=== PATIENT | male | born 1945 | race Caucasian/White ===

== ENCOUNTER 2017-01-06 17:45 | Inpatient (IN) | payer MEDICARE ==
[~2017-01-06] VITALS: Ht 170.2 cm; Wt 80.0 kg
[~2017-01-06 17:45] MED LIST: BUPR300T PO; CLON1TAB PO; ENAL20TA PO
[2017-01-06 17:55] VITALS: BP 146/74; PULSE 91; RESP 26; TEMP 97.9; O2SAT 96
[2017-01-06] MEDS ORDERED: LORazepam 2 MG/ML VIAL IV PUSH ONE ×2 (18:00→20:00)
[2017-01-06] MEDS ORDERED: MULTIVITAMIN TAB PO ONE (18:00)
[2017-01-06] MEDS ORDERED: THIAMINE HCL 100 MG TAB PO ONE (18:00)
[2017-01-06 18:08] VITALS: RESP 19
--- NOTE | 2017-01-06 18:26 | PD ---
HPI Chief Complaint: General Weakness Time Seen by Provider: 17:59 Travel History International Travel<30 days: No Contact w/Intl Traveler<30days: No Traveled to known affect area: No History of Present Illness HPI This is a 71 year-old gentleman with history of hypertension, hyperlipidemia, who presents here via EMS with what appears to be alcohol withdrawal. The patient admits that he is an alcoholic. He is unsure when his last drink was. The patient has severe tremors. He denies any history of true DTs. He does report he has had the shakes before. He states that he was in a relationship with him was going to be however that is subsequently resolved. He is very emotional. PFSH Past Medical History Hx Anticoagulant Therapy: Yes (aspirin) Bipolar Disorder: Yes Cardiovascular Problems: Yes High Cholesterol: Yes Diminished Hearing: No Genitourinary: No Hypertension: Yes Musculoskeletal: No Neurologic: Yes Respiratory: No PNEUMOCCOCAL Vaccine (Year): 2 Past Surgical History Abdominal Surgery: No Cardiac Surgery: No Ear Surgery: No Endocrine Surgery: No Eye Surgery: No Genitourinary Surgery: No Oral Surgery: No Thoracic Surgery: No Tonsillectomy: Yes Other Surgery: Yes Social History Alcohol Use: Yes (WINE/VODKA 2-4 times a week) Tobacco Use: No Substance Use: Yes Allergies-Medications (Allergen,Severity, Reaction): Coded Allergies: No Known Allergies (Verified , 12/24/15) Reported Meds & Prescriptions Reported Meds & Active Scripts Active Enalapril Maleate 20 Mg Tab 20 Mg PO DAILY 30 Days Reported Clonazepam 1 Mg Tab 1 Mg PO Q12 Bupropion Hcl Xl (Bupropion HCl) 300 Mg Tab 100 Mg PO BID Enalapril Maleate 20 Mg Tab 20 Mg PO Review of Systems Eyes: No: Blurred Vision, Photophobia HENT: No: Headaches, Neck Pain Cardiovascular: No: Chest Pain or Discomfort, Palpitations Respiratory: No: Cough, Shortness of Breath Gastrointestinal: No: Nausea, Vomiting, Abdominal Pain Genitourinary: No: Dysuria, Incontinence Musculoskeletal: Positive: Weakness (generalized), No: Pain Neurologic: Positive: Weakness (generalized), Other (tremulousness), No: Dizziness, Headache, Seizures, Sensory Disturbance Physical Exam Narrative GENERAL: Well-developed well-nourished male who appears very tremulous. SKIN: Focused skin assessment warm/dry. HEAD: Atraumatic. Normocephalic. EYES: No scleral icterus. No injection or drainage. ENT: No nasal bleeding or discharge. Mucous membranes pink and moist. NECK: Trachea midline. No JVD. Supple. CARDIOVASCULAR: Regular rate and rhythm. No murmur appreciated. There is a hematoma to his right upper chest. The patient states he bumps into things. RESPIRATORY: No accessory muscle use. Clear to auscultation. Breath sounds equal bilaterally. GASTROINTESTINAL: Abdomen soft, non-tender, nondistended. MUSCULOSKELETAL: No obvious deformities. No clubbing. No cyanosis. No edema. NEUROLOGICAL: Awake and alert. No obvious cranial nerve deficits. Motor grossly within normal limits. Normal speech. Patient is very shaky. Data Data Last Documented VS Vital Signs Date Time Temp Pulse Resp B/P Pulse Ox O2 Delivery O2 Flow Rate FiO2 01/06/17 18:08 19 Room Air 95 01/06/17 18:05 91 96 01/06/17 17:55 97.9 146/74 Orders Complete Blood Count With Diff (01/06/17 17:59) Comprehensive Metabolic Panel (01/06/17 17:59) Ckmb (Isoenzyme) Profile (01/06/17 17:59) Troponin I (01/06/17 17:59) Lipase (01/06/17 17:59) Chest, Single Ap (01/06/17 17:59) Iv Access Insert/Monitor (01/06/17 17:59) Ecg Monitoring (01/06/17 17:59) Oximetry (01/06/17 17:59) Drug Screen, Random Urine (01/06/17 17:59) Alcohol (Ethanol) (01/06/17 17:59) Lorazepam Inj (Ativan Inj) (01/06/17 18:00) Thiamine (Vit B1) (Vitamin B1) (01/06/17 18:00) Multivitamin (Theragran) (01/06/17 18:00) MDM Medical Decision Making Medical Screen Exam Complete: Yes Emergency Medical Condition: Yes Differential Diagnosis Acute alcohol withdrawal versus metabolic derangement versus acute life stressors. Narrative Course 71-year-old male presents with complaints of weakness. The patient admits that he has an alcohol abuse problem. The patient appears to be going through withdrawals. Laboratory tests are pending at this time. He will be signed out to Dr. Alexis Ramon, physician replacing me at change of shift. Disposition and further workup/evaluation will be per Dr. Ramon. Diagnosis Primary Impression: Weakness Additional Impression: acute alcohol withdrawal Faisal Thakkar MD Jan 06, 2017 18:26
--- NOTE | 2017-01-06 18:46 | RADRPT ---
EXAM DATE/TIME: 01/06/2017 18:08 [facility] COMPARISON: No previous studies available for comparison. INDICATIONS : Rib pain. History of fall. MEDICAL HISTORY : None. SURGICAL HISTORY : None. ENCOUNTER: Initial ACUITY: 1 day PAIN SCORE: 0/10 LOCATION: Right upper chest bruising FINDINGS: Single AP view of the chest. The lungs are clear. Cardiomediastinal silhouette within normal limits. No evidence of pleural effusion or pneumothorax. Old lateral ninth rib fracture on the right. CONCLUSION: Old right lateral ninth rib fracture deformity. No acute cardiopulmonary disease identified. Jeff Caro MD on January 06, 2017 at 18:43 Board Certified Radiologist. This report was verified electronically.
[2017-01-06 18:50] LABS: AUTOMATED NEUTROPHIL # 7.2 TH/MM3 (1.8-7.7); BASOPHIL % 0.3 % (0.0-2.0); EOSINOPHIL % 0.1 % (0.0-4.0); HEMATOCRIT 44.4 % (39.0-51.0); HEMO FLAGS DIFF FINAL; LYMPH % 9.5 % (9.0-44.0); LYMPHOCYTE # 0.8 TH/MM3 (1.0-4.8); MEAN CELL VOLUME 94.2 FL (80.0-100.0); MEAN CORPUSCULAR HEMOGLOBIN 32.9 PG (27.0-34.0); MEAN CORPUSCULAR HGB CONC 34.9 % (32.0-36.0); MONO % 6.1 % (0.0-8.0); PLATELET COUNT 114 TH/MM3 (150-450); RED BLOOD COUNT 4.71 MIL/MM3 (4.50-5.90); RED CELL DISTRIBUTION WIDTH 13.1 % (11.6-17.2); WHITE BLOOD COUNT 8.6 TH/MM3 (4.0-11.0)
[2017-01-06] MEDS ORDERED: BUPR75TA PO (19:00)
[2017-01-06] MEDS ORDERED: ENAL5TAB PO (19:00)
[2017-01-06] MEDS ORDERED: SIMV5TAB3 PO (19:00)
[2017-01-06] MEDS ORDERED: CLON1 PO (19:00)
--- NOTE | 2017-01-06 19:07 | PD ---
Data Data Last Documented VS Vital Signs Date Time Temp Pulse Resp B/P Pulse Ox O2 Delivery O2 Flow Rate FiO2 01/06/17 21:15 91 16 163/92 97 Room Air 01/06/17 18:08 95 01/06/17 17:55 97.9 Orders Complete Blood Count With Diff (01/06/17 17:59) Comprehensive Metabolic Panel (01/06/17 17:59) Ckmb (Isoenzyme) Profile (01/06/17 17:59) Troponin I (01/06/17 17:59) Lipase (01/06/17 17:59) Chest, Single Ap (01/06/17 17:59) Iv Access Insert/Monitor (01/06/17 17:59) Ecg Monitoring (01/06/17 17:59) Oximetry (01/06/17 17:59) Drug Screen, Random Urine (01/06/17 17:59) Alcohol (Ethanol) (01/06/17 17:59) Lorazepam Inj (Ativan Inj) (01/06/17 18:00) Thiamine (Vit B1) (Vitamin B1) (01/06/17 18:00) Multivitamin (Theragran) (01/06/17 18:00) CKMB (01/06/17 18:10) CKMB% (01/06/17 18:10) Sodium Chlor 0.9% 1000 Ml Inj (Ns 1000 M (01/06/17 20:00) Lorazepam Inj (Ativan Inj) (01/06/17 20:00) Resp Blood Gas Venous (01/06/17 ) Blood Gas Venous (Vbg) (01/06/17 20:23) Admit To Inpatient (01/06/17 ) Vital Signs (Adult) Q4H (01/06/17 20:51) Bedside Glucose STEVE.AC&HS (01/06/17 20:51) Intake + Output STEVE.QSHIFT (01/06/17 20:51) Alcohol Withdrawal Asmt-Ciwa Q4HX18 (01/06/17 20:51) ^ Seizure Precautions (01/06/17 20:51) Diet Regular Basic (01/07/17 Breakfast) Folic Acid (Folate) (01/07/17 09:00) Thiamine (Vit B1) (Vitamin B1) (01/07/17 09:00) Multivitamins-Minerals Therap (Theragran (01/07/17 09:00) Consult Cm-Etoh Abuse Dc Plan (01/06/17 ) Flumazenil Inj (Romazicon Inj) (01/06/17 21:00) Lorazepam (Ativan) (01/06/17 21:00) Lorazepam Inj (Ativan Inj) (01/06/17 21:00) Lorazepam (Ativan) (01/06/17 21:00) Lorazepam Inj (Ativan Inj) (01/06/17 21:00) Lorazepam Inj (Ativan Inj) (01/06/17 21:00) Lorazepam Inj (Ativan Inj) (01/06/17 21:00) Haloperidol Inj (Haldol Inj) (01/06/17 21:00) Inpatient Certification (01/06/17 ) Vital Signs (Adult) Q4H (01/06/17 20:51) Kiln Cleaner / Telemetry .CONTINUOUS (01/06/17 20:51) Intake + Output STEVE.QSHIFT (01/06/17 20:51) Sodium Chlor 0.9% 1000 Ml Inj (Ns 1000 M (01/06/17 21:00) Sodium Chloride 0.9% Flush (Ns Flush) (01/06/17 21:00) Sodium Chloride 0.9% Flush (Ns Flush) (01/06/17 21:00) Ondansetron Inj (Zofran Inj) (01/06/17 21:00) Comprehensive Metabolic Panel (01/07/17 06:00) Complete Blood Count With Diff (01/07/17 06:00) Scd Bilateral/Knee High STEVE.BID (01/06/17 20:51) Myke Bilateral/Knee High STEVE.QSHIFT (01/06/17 20:51) Acetaminophen (Tylenol) (01/06/17 21:00) Docusate Sodium-Senna (Altagracia-Colace) (01/06/17 21:00) Magnesium Hydroxide Liq (Milk Of Magnesi (01/06/17 21:00) Sennosides (Senokot) (01/06/17 21:00) Bisacodyl Supp (Dulcolax Supp) (01/06/17 21:00) Lactulose Liq (Lactulose Liq) (01/06/17 21:00) Electrocardiogram (01/06/17 18:02) Admit Order (Ed Use Only) (01/06/17 ) Labs Laboratory Tests Test 01/06/17 01/06/17 18:10 20:23 White Blood Count 8.6 TH/MM3 Red Blood Count 4.71 MIL/MM3 Hemoglobin 15.5 GM/DL Hematocrit 44.4 % Mean Corpuscular Volume 94.2 FL Mean Corpuscular Hemoglobin 32.9 PG Mean Corpuscular Hemoglobin 34.9 % Concent Red Cell Distribution Width 13.1 % Platelet Count 114 TH/MM3 Mean Platelet Volume 8.0 FL Neutrophils (%) (Auto) 84.0 % Lymphocytes (%) (Auto) 9.5 % Monocytes (%) (Auto) 6.1 % Eosinophils (%) (Auto) 0.1 % Basophils (%) (Auto) 0.3 % Neutrophils # (Auto) 7.2 TH/MM3 Lymphocytes # (Auto) 0.8 TH/MM3 Monocytes # (Auto) 0.5 TH/MM3 Eosinophils # (Auto) 0.0 TH/MM3 Basophils # (Auto) 0.0 TH/MM3 CBC Comment DIFF FINAL Differential Comment Sodium Level 136 MEQ/L Potassium Level 3.6 MEQ/L Chloride Level 95 MEQ/L Carbon Dioxide Level 26.4 MEQ/L Anion Gap 15 MEQ/L Blood Urea Nitrogen 12 MG/DL Creatinine 1.07 MG/DL Estimat Glomerular Filtration 69 ML/MIN Rate Random Glucose 123 MG/DL Calcium Level 9.7 MG/DL Total Bilirubin 1.5 MG/DL Aspartate Amino Transf 45 U/L (AST/SGOT) Alanine Aminotransferase 59 U/L (ALT/SGPT) Alkaline Phosphatase 75 U/L Total Creatine Kinase 203 U/L Creatine Kinase MB 5.5 NG/ML Troponin I 0.03 NG/ML Total Protein 8.0 GM/DL Albumin 4.2 GM/DL Lipase 80 U/L Ethyl Alcohol Level LESS THAN 3 MG/DL Blood Gas Puncture Site RN BLOOD DRAWER Blood Gas Patient Temperature 98.6 Venous Blood pH 7.50 Venous Blood Partial Pressure 33 mmHg CO2 Venous Blood Partial Pressure 46 mmHg O2 Venous Blood HCO3 25 mmol/L Venous Blood Oxygen Saturation 80 % Venous Blood Oxygen Content 16.5 Vol % Venous Blood Base Excess 2.2 mmol/L Oxygen Delivery Device RA Blood Gas Inspired Oxygen 21 % MDM Supervised Visit with CINTHIA: Yes Narrative Course Patient care assumed from Dr. Faisal Thakkar at 1900. Patient is a 71-year-old male who told me that the bottle pretty hard last week and hasn't had a drink in 3 days. His been tremulous since today. Mild nausea without vomiting. He is bordering confusion and I have to ask him every question twice to get responses out of him. No fever not tachycardic. He was given a liter of normal saline 4 mg of Ativan and is beginning to calm down. Initial laboratory workup is reassuring. Patient was discussed with Dr. Montgomery for admission for alcohol withdrawals and she is agreeable. Diagnosis Primary Impression: Weakness Additional Impression: acute alcohol withdrawal Admitting Information Admitting Physician Requests: Observation Condition: Stable Alexis Ramon MD Jan 06, 2017 19:07
[2017-01-06 19:11] LABS: ALT (GPT) 59 U/L (12-78); ANION GAP 15 MEQ/L (5-15); AST (GOT) 45 U/L (15-37); BICARBONATE 26.4 MEQ/L (21.0-32.0); BLOOD UREA NITROGEN 12 MG/DL (7-18); CHLORIDE 95 MEQ/L (98-107); GLOMERULAR FILTRATION RATE 69 ML/MIN (>89); POTASSIUM 3.6 MEQ/L (3.5-5.1); SODIUM (NA) 136 MEQ/L (136-145)
[2017-01-06 19:14] LABS: ALKALINE PHOSPHATASE 75 U/L (45-117); CREATINE KINASE 203 U/L (39-308); TOTAL BILIRUBIN ADULT 1.5 MG/DL (0.2-1.0)
[2017-01-06 19:27] LABS: CKMB 5.5 NG/ML (0.5-3.6)
[2017-01-06] MEDS ORDERED: SODIUM CHLOR 0.9% 1000 ML INJ 1,000 ML IV ONE (20:00)
[2017-01-06 20:41] LABS: BLOOD GAS VENOUS BASE EXCESS 2.2 mmol/L (-2-2); BLOOD GAS VENOUS HCO3 25 mmol/L (22-26); BLOOD GAS VENOUS O2 CONTENT 16.5 Vol % (9.0-17.0); BLOOD GAS VENOUS O2 HGB SAT 80 % (70-76); BLOOD GAS VENOUS PCO2 33 mmHg (44-48); BLOOD GAS VENOUS PO2 46 mmHg (35-40); TEMP CORR TO 98.6
[2017-01-06 20:43] LABS: CRITICAL VALUE YES; FIO2 21 %; OXYGEN DEVICE RA; STAT YES
--- NOTE | 2017-01-06 20:56 | HHI.HP ---
HPI Service [facility] Primary Care Physician Juanjose Forte Admission Diagnosis Diagnoses: (1) Alcohol abuse Diagnosis: Principal (2) Dehydration Diagnosis: Principal (3) HTN (hypertension) Diagnosis: Principal (4) Thrombocytopenia Diagnosis: Principal Travel History International Travel<30 Days: No Contact w/Intl Traveler <30 Da: No Traveled to Known Affected Are: No History of Present Illness Is a 71-year-old male with a PMH of Bipolar Disorder, HTN, Hyperlipidemia and Alcohol Abuse was brought to the ER by EMS secondary to apparent alcohol withdrawal. Patient states he drinks daily, unable to quantify, however reports he has not had a drink in a "long time". Does admit to previous episodes of alcohol withdrawal. On arrival, BP 146/74, HR 91, O2 sat 96% on RA , Afebrile. CBC unremarkable except for platelets 114, previously 117 on . Chemistry unremarkable except for GFR 69. Alcohol less than 3. CXR with old right lateral ninth rib fracture, no acute findings. S/p multiple doses of Ativan IV in ER for tremulousness. Review of Systems Except as stated in HPI: all other systems reviewed are Neg ROS: 14 point review of systems otherwise negative. Past Family Social History Past Medical History PMH: Bipolar Disorder, HTN, Hyperlipidemia and Alcohol Abuse Past Surgical History PAST SURGICAL HISTORY: Tonsillectomy Allergies: Coded Allergies: No Known Allergies (Verified , 12/24/15) Family History PAST FAMILY HISTORY: Reviewed. No h/o DM or CAD Social History PAST SOCIAL HISTORY: Alcohol abuse, unable to quantify. Negative for tobacco or drugs. Physical Exam Vital Signs Vital Signs Date Time Temp Pulse Resp B/P Pulse Ox O2 Delivery O2 Flow Rate FiO2 01/06/17 18:08 19 Room Air 95 01/06/17 18:05 91 96 Room Air 01/06/17 17:55 97.9 91 26 146/74 96 Physical Exam PE: GENERAL: Middle age male in no acute distress, mildly tremulous. HEENT: PERRLA, EOMI. No scleral icterus or conjunctival pallor. No lid lag or facial droop. CARDIOVASCULAR: Regular rate and rhythm. No obvious murmurs to auscultation. No chest tenderness to palpation. RESPIRATORY: No obvious rhonchi or wheezing. Clear to auscultation. Breath sounds equal bilaterally. GASTROINTESTINAL: Abdomen soft, non-tender, nondistended. BS normal. MUSCULOSKELETAL: Extremities without clubbing, cyanosis, or edema. No obvious deformities. NEUROLOGICAL: Awake, alert and oriented x4. No focal neurologic deficits. Moving both upper and lower extremities spontaneously. Laboratory Laboratory Tests Test 01/06/17 01/06/17 18:10 20:23 White Blood Count 8.6 Red Blood Count 4.71 Hemoglobin 15.5 Hematocrit 44.4 Mean Corpuscular Volume 94.2 Mean Corpuscular Hemoglobin 32.9 Mean Corpuscular Hemoglobin 34.9 Concent Red Cell Distribution Width 13.1 Platelet Count 114 Mean Platelet Volume 8.0 Neutrophils (%) (Auto) 84.0 Lymphocytes (%) (Auto) 9.5 Monocytes (%) (Auto) 6.1 Eosinophils (%) (Auto) 0.1 Basophils (%) (Auto) 0.3 Neutrophils # (Auto) 7.2 Lymphocytes # (Auto) 0.8 Monocytes # (Auto) 0.5 Eosinophils # (Auto) 0.0 Basophils # (Auto) 0.0 CBC Comment DIFF FINAL Differential Comment Sodium Level 136 Potassium Level 3.6 Chloride Level 95 Carbon Dioxide Level 26.4 Anion Gap 15 Blood Urea Nitrogen 12 Creatinine 1.07 Estimat Glomerular Filtration 69 Rate Random Glucose 123 Calcium Level 9.7 Total Bilirubin 1.5 Aspartate Amino Transf 45 (AST/SGOT) Alanine Aminotransferase 59 (ALT/SGPT) Alkaline Phosphatase 75 Total Creatine Kinase 203 Creatine Kinase MB 5.5 Troponin I 0.03 Total Protein 8.0 Albumin 4.2 Lipase 80 Ethyl Alcohol Level LESS THAN 3 Blood Gas Puncture Site RN BLOOD DRAWER Blood Gas Patient Temperature 98.6 Venous Blood pH 7.50 Venous Blood Partial Pressure 33 CO2 Venous Blood Partial Pressure 46 O2 Venous Blood HCO3 25 Venous Blood Oxygen Saturation 80 Venous Blood Oxygen Content 16.5 Venous Blood Base Excess 2.2 Oxygen Delivery Device RA Blood Gas Inspired Oxygen 21 Result Diagram: 01/06/17180901/06/171809 Assessment and Plan Problem List: (1) Alcohol abuse ICD Code: F10.10 Status: Acute (2) Dehydration ICD Code: E86.0 Status: Acute (3) HTN (hypertension) ICD Code: I10 Status: Acute (4) Thrombocytopenia ICD Code: D69.6 Status: Acute Assessment and Plan A/P: 1. Alcohol Abuse: w/ Acute Alcohol Withdrawal, +tremulous, s/p multiple doses of Ativan IV in ER. Start CIWA, Seizure Precautions, MVT/Thiamine/Folate replacement. IVF 2. Dehydration: GFR 69, BUN/Creatinine normal. IVF for hydration, repeat labs in am. 3. HTN: BP 160's. Hold Enalapril in light of dehydration, start Clonidine PO , monitor BP. 4. Thrombocytopenia: Platelets 114, previously 117 on 12/24/15. No signs of bleeding, will monitor, repeat labs in am. 5. DVT Prophylaxis: SCD/teds. 6. Social work for DC planning as needed. 7. Case discussed at length with ER physician. Physician Certification 2 Midnight Certification Type: Admission for Inpatient Services Order for Inpatient Services The services are ordered in accordance with Medicare regulations or non- Medicare payer requirements, as applicable. In the case of services not specified as inpatient-only, they are appropriately provided as inpatient services in accordance with the 2-midnight benchmark. Estimated LOS (days): 2 days is the estimated time the patient will need to remain in the hospital, assuming treatment plan goals are met and no additional complications. Post-Hospital Plan: Not yet determined Debbie Velasquez MD Jan 06, 2017 20:56
[2017-01-06] MEDS ORDERED: FLUMAZENIL 0.5 MG/5 ML VIAL IV PUSH PRN (21:00)
[2017-01-06] MEDS ORDERED: BISACODYL 10 MG SUPP RECTAL PRN (21:00)
[2017-01-06] MEDS: SODIUM CHLORIDE 0.9% FLUSH 10 ML FLUSH IV FLUSH SCH (21:00)
[2017-01-06] MEDS ORDERED: LORazepam 2 MG TAB PO PRN (21:00)
[2017-01-06] MEDS ORDERED: LORazepam 2 MG/ML VIAL IV PUSH PRN ×4 (21:00)
[2017-01-06] MEDS ORDERED: SODIUM CHLORIDE 0.9% FLUSH 10 ML FLUSH IV FLUSH PRN (21:00)
[2017-01-06] MEDS ORDERED: SENNOSIDES 8.6 MG TAB PO PRN (21:00)
[2017-01-06] MEDS: DOCUSATE SODIUM 50 MG/SENNA 8.6 MG TAB PO SCH (21:00)
[2017-01-06] MEDS ORDERED: MAGNESIUM HYDROXIDE SUSP 30 ML CUP PO PRN (21:00)
[2017-01-06] MEDS ORDERED: LORazepam 1 MG TAB PO PRN (21:00)
[2017-01-06] MEDS ORDERED: ONDANSETRON HCL 4 MG/2 ML VIAL IVP PRN (21:00)
[2017-01-06] MEDS ORDERED: ACETAMINOPHEN 325 MG TAB PO PRN (21:00)
[2017-01-06] MEDS ORDERED: HALOPERIDOL LACTATE 5 MG/ML AMP IM PRN (21:00)
[2017-01-06] MEDS ORDERED: LACTULOSE SYRUP 20 GM/30 ML CUP PO PRN (21:00)
[2017-01-06 21:15] VITALS: BP 163/92; PULSE 91; RESP 16; O2SAT 97
[2017-01-06] MEDS: SODIUM CHLOR 0.9% 1000 ML INJ 1,000 ML IV SCH (21:32)
[2017-01-06] MEDS: cloNIDine HCL 0.1 MG TAB PO SCH (22:14)
[2017-01-06 22:48] VITALS: PULSE 82
[2017-01-06 22:50] VITALS: BP 139/64; PULSE 89; RESP 18; TEMP 98.6; O2SAT 97
[2017-01-06 23:27] LABS: AMPHETAMINE, URINE NEG (NEG); BARBITURATES, URINE NEG (NEG); COCAINE, URINE NEG (NEG)
[2017-01-07] VITALS (11 sets, daily range): BP systolic 131–140; BP diastolic 75–83; PULSE 67–83; RESP 16–21; TEMP 98–98.7; O2SAT 96–100
[2017-01-07] MEDS: cloNIDine HCL 0.1 MG TAB PO SCH ×3 (05:44→22:18)
[2017-01-07] MEDS: SODIUM CHLOR 0.9% 1000 ML INJ 1,000 ML IV SCH ×3 (05:45→19:14)
[2017-01-07] MEDS ORDERED: FOLI1TAB6 PO (09:31)
[2017-01-07] MEDS ORDERED: GNP100TA3 PO (09:31)
[2017-01-07] MEDS: FOLIC ACID 1 MG TAB PO SCH (09:37)
[2017-01-07] MEDS: MULTIVITAMINS/MINERALS THERAPEUTIC TAB PO SCH (09:37)
[2017-01-07] MEDS: THIAMINE HCL 100 MG TAB PO SCH (09:37)
--- NOTE | 2017-01-07 09:37 | HHI.PR ---
Subjective Remarks Follow-up for probable alcohol withdrawal. The patient is awake, alert, and oriented 3. He is feeling much better today. He states he called the ambulance yesterday because he was shaking so badly that he could not walk. He states she's been able to ambulate to the restroom multiple times with no assistance overnight. Tremors have improved. He denies any further weakness. Tolerating diet with no nausea or vomiting. No chest pain, shortness of breath. Denies any suicidal ideation, homicidal ideation, hallucinations. When asked about alcohol use, the patient becomes evasive, states "I drink glass of wine every night", but does agree that his symptoms are probably secondary to alcohol use. He states that earlier this week he decided that he was done with alcohol, and his last drink was on . The tremor started on Sunday and got worse Sunday which prompted him to come in. He denies any problems with withdrawals in the past. He does want to abstain from alcohol, would like to go back to AA, interested in information. He was offered Librium , but would rather continue on his current Klonopin. Objective Vitals Vital Signs Date Time Temp Pulse Resp B/P Pulse Ox O2 Delivery O2 Flow Rate FiO2 01/07/17 08:28 98.7 71 18 137/83 96 01/07/17 04:00 98.0 73 18 140/78 96 01/07/17 03:48 68 01/07/17 01:00 72 01/06/17 22:50 98.6 89 18 139/64 97 01/06/17 22:48 82 01/06/17 21:15 91 16 163/92 97 Room Air 01/06/17 18:08 19 Room Air 95 01/06/17 18:05 91 96 Room Air 01/06/17 17:55 97.9 91 26 146/74 96 Result Diagram: 01/06/170 01/06/171809 Imaging Last Impressions Chest X-Ray 01/06/171758 Signed Impressions: Service Date/Time: Friday, January 06, 2017 18:08 - CONCLUSION: Old right lateral ninth rib fracture deformity. No acute cardiopulmonary disease identified. Jeff Caro MD Objective Remarks GENERAL: Well-developed well-nourished. In no acute distress. Oriented 3. SKIN: Warm and dry. No lesions noted. HEENT: Normocephalic. Pupils equal and round. Mucous membranes pink and moist. CARDIOVASCULAR: Regular rate and rhythm. No murmur appreciated. RESPIRATORY: No accessory muscle use. Clear to auscultation. Breath sounds equal bilaterally. GASTROINTESTINAL: Abdomen soft, non-tender, nondistended. Bowel sounds x4. MUSCULOSKELETAL: Chronic right thumb deformity. No clubbing or cyanosis. No edema. NEUROLOGICAL: Awake and alert. No focal neurological deficits. Moves upper and lower extremities spontaneously. Normal speech. No tremors. Strength 5/5. PSYCHIATRIC: Appropriate mood and affect; insight and judgment normal. Denies SI or HI. A/P Problem List: (1) Alcohol abuse ICD Code: F10.10 Status: Acute (2) HTN (hypertension) ICD Code: I10 Status: Chronic (3) Thrombocytopenia ICD Code: D69.6 Status: Chronic Assessment and Plan 71-year-old male with a PMH of Bipolar Disorder, HTN, Hyperlipidemia and Alcohol Abuse was brought to the ER by EMS secondary to apparent alcohol withdrawal tremors Acute alcohol withdrawal: Patient presented with worsening tremors to history days after stopping alcohol. Does admit to daily alcohol use. Blood pressure and heart rate are within normal limits. No hallucinations. Tremors have resolved. CIWA score has been 0 overnight. Patient ambulating without difficulties. Wants to continue cessation, case management to provide outpatient resources for continued alcohol cessation. Patient refuses Librium, wants to continue Klonopin. CIWA, Seizure Precautions, MVT/Thiamine/Folate replacement. IVF. Patient improved faster than expected. Hypertension: Chronic, stable. Resume home enalapril. Thrombocytopenia: Platelets 114, previously 117 on 12/24/15, chronic, stable. No signs of bleeding, will monitor. History of anxiety/depression: Denies SI or HI. Continue bupropion and Klonopin. DVT Prophylaxis: SCD/teds. Discharge Planning The patient was to be discharged home, however began to have recurrent episodes of tremors again and difficulty ambulating. Hold discharge for today. Consult PT. Continue Librium and CIWA. Check head CT. Problem Qualifiers (1) HTN (hypertension): Qualified Code: I10 - Essential hypertension Curtis Medel Jan 07, 2017 09:37 Qualified Code: I10 - Essential hypertension Curtis Medel Jan 07, 2017 09:37
[2017-01-07] MEDS: DOCUSATE SODIUM 50 MG/SENNA 8.6 MG TAB PO SCH ×3 (09:38→22:18)
[2017-01-07] MEDS: SODIUM CHLORIDE 0.9% FLUSH 10 ML FLUSH IV FLUSH SCH ×2 (09:39→22:19)
[2017-01-07 10:49] LABS: ALKALINE PHOSPHATASE 66 U/L (45-117); ALT (GPT) 44 U/L (12-78); ANION GAP 13 MEQ/L (5-15); AST (GOT) 43 U/L (15-37); BICARBONATE 23.5 MEQ/L (21.0-32.0); CHLORIDE 104 MEQ/L (98-107); GLOMERULAR FILTRATION RATE 75 ML/MIN (>89); POTASSIUM 3.7 MEQ/L (3.5-5.1); SODIUM (NA) 140 MEQ/L (136-145); TOTAL BILIRUBIN ADULT 1.2 MG/DL (0.2-1.0)
[2017-01-07 10:50] LABS: BLOOD UREA NITROGEN 13 MG/DL (7-18)
[2017-01-07 14:23] LABS: AUTOMATED NEUTROPHIL # 3.4 TH/MM3 (1.8-7.7); BASOPHIL % 0.3 % (0.0-2.0); EOSINOPHIL # 0.2 TH/MM3 (0-0.4); EOSINOPHIL % 3.4 % (0.0-4.0); HEMATOCRIT 39.8 % (39.0-51.0); LYMPHOCYTE # 0.8 TH/MM3 (1.0-4.8); MEAN CELL VOLUME 96.1 FL (80.0-100.0); MEAN CORPUSCULAR HEMOGLOBIN 32.8 PG (27.0-34.0); MEAN CORPUSCULAR HGB CONC 34.1 % (32.0-36.0); MONO % 9.2 % (0.0-8.0); NEUT % 70.1 % (16.0-70.0); PLATELET COUNT 93 TH/MM3 (150-450); RED BLOOD COUNT 4.14 MIL/MM3 (4.50-5.90); WHITE BLOOD COUNT 4.9 TH/MM3 (4.0-11.0)
[2017-01-07 14:40] LABS: HEMO FLAGS AUTO DIFF
[2017-01-07 15:27] LABS: PLATELET ESTIMATE SMEAR LOW (NORMAL); PLATELET MORPHOLOGY NORMAL (NORMAL); SCAN/DIFF AUTO DIFF CONFIRMED
--- NOTE | 2017-01-07 17:45 | RADRPT ---
EXAM DATE/TIME: 01/07/2017 17:27 [facility] COMPARISON: No previous studies available for comparison. INDICATIONS : Alcohol withdrawls. RADIATION DOSE: 43.61 CTDIvol (mGy) MEDICAL HISTORY : Cardiovascular disease. Hypercholesterolemia. Bipolar SURGICAL HISTORY : Tonsillectomy. ENCOUNTER: Initial ACUITY: 2 days PAIN SCALE: 0/10 LOCATION: cranial TECHNIQUE: Multiple contiguous axial images were obtained of the head. Using automated exposure control and adj ustment of the mA and/or kV according to patient size, radiation dose was kept as low as reasonably a chievable to obtain optimal diagnostic quality images. DICOM format image data is available electro nically for review and comparison. FINDINGS: CEREBRUM: Diffuse prominence of ventricles, sulci, and cisterns indicating diffuse atrophy is somewhat prominen t for age.. No evidence of midline shift, mass lesion, hemorrhage or acute infarction. No extra-axia l fluid collections are seen. POSTERIOR FOSSA: The cerebellum and brainstem are intact. The 4th ventricle is midline. The cerebellopontine angle i s unremarkable. EXTRACRANIAL: Opacification of the left maxillary and left ethmoid sinuses. SKULL: Old frontal craniotomy. CONCLUSION: 1. No acute intracranial findings. 2. Posterior to the findings in the left frontal region. 3. Diffuse atrophy. 4. Left-sided maxillary and ethmoid sinus disease. Jeff Caro MD on January 07, 2017 at 17:41 Board Certified Radiologist. This report was verified electronically.
[2017-01-08] VITALS (7 sets, daily range): BP systolic 140–156; BP diastolic 78–93; PULSE 64–75; RESP 18–20; TEMP 98–98.7; O2SAT 97–98
[2017-01-08] MEDS: cloNIDine HCL 0.1 MG TAB PO SCH (06:01)
[2017-01-08] MEDS ORDERED: CHLO10CA5 PO (08:41)
--- NOTE | 2017-01-08 08:41 | HHI.DCPOC ---
Discharge Care Plan Diagnosis: (1) Alcohol abuse (2) Weakness Goals to Promote Your Health * To prevent worsening of your condition and complications * To maintain your health at the optimal level Directions to Meet Your Goals Take your medications as prescribed Follow your dietary instruction Follow activity as directed Keep your appointments as scheduled Take your immunizations and boosters as scheduled If your symptoms worsen call your PCP, if no PCP go to Urgent Care Center or Emergency Room Smoking is Dangerous to Your Health. Avoid second hand smoke Call the 24-hour hour crisis hotline for domestic abuse at Yasmeen Lam PA-C Jan 08, 2017 08:41
[2017-01-08] MEDS: DOCUSATE SODIUM 50 MG/SENNA 8.6 MG TAB PO SCH (09:00)
[2017-01-08] MEDS: SODIUM CHLORIDE 0.9% FLUSH 10 ML FLUSH IV FLUSH SCH (09:00)
--- NOTE | 2017-01-08 09:01 | HHI.PR ---
Subjective Remarks Follow up for alcohol withdrawal. Patient seen ambulating to the restroom without difficulty, no gait instability or significant tremor. Patient states he feels much better, especially after starting on Librium. He denies any other medical complaints including no chest pain, shortness of breath, abdominal pain , nausea/vomiting/diarrhea. He wants to go home greg today. He is motivated to quit drinking and wants more information on local AA/alcohol rehab. He is requesting a ride home. Objective Vitals Vital Signs Date Time Temp Pulse Resp B/P Pulse Ox O2 Delivery O2 Flow Rate FiO2 01/08/17 08:32 98.7 64 20 156/83 97 01/08/17 04:33 98.0 66 18 140/78 98 01/08/17 04:09 65 01/08/17 00:05 64 01/08/17 00:01 98.1 68 18 150/93 97 01/07/17 20:20 83 01/07/17 19:50 98.5 70 21 134/78 100 01/07/17 18:00 72 01/07/17 16:09 98.3 67 16 131/77 96 01/07/17 12:13 81 01/07/17 11:43 98.0 75 18 132/75 97 I/O 01/07/17 01/07/17 01/07/17 01/08/17 01/08/17 01/08/17 06:59 14:59 22:59 06:59 14:59 22:59 Intake Total 1620 ml Balance 1620 ml Intake Oral 720 ml IV Total 900 ml # Voids 7 1 # Bowel Movements 1 Result Diagram: 01/07/17 1340 01/07/17 0936 Imaging Last Impressions Head CT 01/07/17 0000 Signed Impressions: Service Date/Time: Saturday, January 07, 2017 17:27 - CONCLUSION: 1. No acute intracranial findings. 2. Posterior to the findings in the left frontal region. 3. Diffuse atrophy. 4. Left-sided maxillary and ethmoid sinus disease. Jeff Caro MD Chest X-Ray 01/06/17 5668 Signed Impressions: Service Date/Time: Friday, January 06, 2017 18:08 - CONCLUSION: Old right lateral ninth rib fracture deformity. No acute cardiopulmonary disease identified. Jeff Caro MD Objective Remarks GENERAL: Well-nourished, well-developed male patient in NAD. Non-tremulous. SKIN: Warm and dry. No rash. HEENT: Normocephalic. Atraumatic. Pupils equal and round. Mucous membranes pink and moist. CARDIOVASCULAR: Regular rate and rhythm. S1, S2 noted. No murmur appreciated. RESPIRATORY: No accessory muscle use. Clear to auscultation. Breath sounds equal bilaterally. GASTROINTESTINAL: Abdomen soft, non-tender, nondistended. Normoactive bowel sounds x4. MUSCULOSKELETAL: Chronic right thumb deformity. Extremities without clubbing, cyanosis, or edema. NEUROLOGICAL: Awake and alert. No obvious cranial nerve deficits. Motor grossly within normal limits. 5/5 muscle strength in bilateral upper and lower extremities. Normal speech. No tremor. PSYCHIATRIC: Appropriate mood and affect; insight and judgment normal. Medications and IVs Current Medications Medications (Trade) Dose Ordered Sig/Mahi Route Start Time Stop Time Status Last Admin (Folate) 1 mg DAILY PO 01/07/17 09:00 01/12/17 08:59 01/07/17 09:37 (Vitamin B1) 100 mg DAILY PO 01/07/17 09:00 01/07/17 09:37 (Theragran M Tab) 1 tab DAILY PO 01/07/17 09:00 01/12/17 08:59 01/07/17 09:37 (Romazicon Inj) 0.2 mg Q1M PRN IV PUSH 01/06/17 21:00 (Ativan) 1 mg Q4H PRN PO 01/06/17 21:00 01/06/17 22:15 (Ativan Inj) 1 mg Q4H PRN IV PUSH 01/06/17 21:00 (Ativan) 2 mg Q2H PRN PO 01/06/17 21:00 (Ativan Inj) 2 mg Q2H PRN IV PUSH 01/06/17 21:00 (Ativan Inj) 2 mg Q1H PRN IV PUSH 01/06/17 21:00 (Ativan Inj) 2 mg Q15M PRN IV PUSH 01/06/17 21:00 Haloperidol Lactate 2 mg 2 mg Q15M PRN IM 01/06/17 21:00 (NS 1000 ml Inj) 1,000 ml @ 100 mls/hr Q10H IV 01/06/17 21:00 01/07/17 19:14 (NS Flush) 2 ml UNSCH PRN IV FLUSH 01/06/17 21:00 (NS Flush) 2 ml BID IV FLUSH 01/06/17 21:00 01/07/17 22:19 (Zofran Inj) 4 mg Q6H PRN IVP 01/06/17 21:00 (Tylenol) 650 mg Q6H PRN PO 01/06/17 21:00 (Altagracia-Colace) 1 tab BID PO 01/06/17 21:00 01/07/17 22:18 (Milk Of Magnesia Liq) 30 ml Q12H PRN PO 01/06/17 21:00 (Senokot) 17.2 mg Q12H PRN PO 01/06/17 21:00 (Dulcolax Supp) 10 mg DAILY PRN RECTAL 01/06/17 21:00 (Lactulose Liq) 30 ml DAILY PRN PO 01/06/17 21:00 (Catapres) 0.1 mg Q8HR PO 01/06/17 22:00 01/08/17 06:01 (Librium) 10 mg QID PO 01/07/17 09:00 01/07/17 22:18 A/P Problem List: (1) Alcohol abuse ICD Code: F10.10 Status: Acute (2) HTN (hypertension) ICD Code: I10 Status: Chronic (3) Thrombocytopenia ICD Code: D69.6 Status: Chronic Assessment and Plan 71-year-old male with a PMH of Bipolar Disorder, HTN, Hyperlipidemia and Alcohol Abuse was brought to the ER by EMS secondary to apparent alcohol withdrawal tremors Acute alcohol withdrawal: Presented with worsening tremors 2 days after quitting alcohol. Admits to daily alcohol use. BP and HR wnl. No hallucinations. Started on CIWA and Librium 10mg qid, Tremors have resolved. Patient ambulating without difficulties. Wants to continue alcohol cessation, case management to provide outpatient resources for local AA/alcohol rehab. Seizure Precautions, MVT/Thiamine/Folate replacement. Given IVF. Seen by PT, no PT needed at discharge. Patient had a remarkable response to treatment with more rapid improvement than expected. Hypertension: Chronic, stable. Resume home enalapril. BP fairly well controlled. Thrombocytopenia: Platelets 114, previously 117 on 7/29/16, chronic, stable. No signs of bleeding, will monitor. History of anxiety/depression: Denies SI or HI. Continue bupropion and Klonopin. DVT Prophylaxis: SCD/teds. Discharge Planning Discharge patient to home Condition on discharge: Improved Heart Healthy Diet as tolerated Ad Adali activity Rx written: Librium 10mg tid #30, thiamine/folate Follow-up with primary care physician within 1 week Follow up with alcohol rehab at [facility] Problem Qualifiers (1) HTN (hypertension): Qualified Code: I10 - Essential hypertension Yasmeen Lam PA-C Jan 08, 2017 09:01
[2017-01-08] MEDS: MULTIVITAMINS/MINERALS THERAPEUTIC TAB PO SCH (10:05)
[2017-01-08] MEDS: FOLIC ACID 1 MG TAB PO SCH (10:05)
[2017-01-08] MEDS: THIAMINE HCL 100 MG TAB PO SCH (10:05)
--- NOTE | 2017-01-08 10:16 | EKG ---
Date Performed: 01/06/2017 Time Performed: 18:02:13 PTAGE: 71 years EKG: Sinus rhythm WITH SINUS ARRHYTHMIA Extensive artifact noted Repeat tracing recommended NORMAL ECG PREVIOUS TRACING : 12/24/2015 00.22 DOCTOR: Az Amador Interpretating Date/Time 01/08/2017 10:14:50
== END 2017-01-08 12:22 | disposition home or self-care (01) | DRG 948 ==
LOC: NEPC 17:45 → NEDA 21:25 → OBSVTOIN 21:25 → NEPFCDU 22:22
PROVIDERS: ADMIT Hospitalist; ATTEND Hospitalist
DX: R53.1 Weakness (principal); D69.6 Thrombocytopenia, unspecified; F10.230 Alcohol dependence with withdrawal, uncomplicated; I10 Essential (primary) hypertension; E78.5 Hyperlipidemia, unspecified; R25.1 Tremor, unspecified; E86.0 Dehydration; F41.9 Anxiety disorder, unspecified; F32.9 Major depressive disorder, single episode, unspecified
CPT/HCPCS: 70450; 71010; 80053; 80307; 82550; 82552; 82805; 82948; 83690; 84484; 85025; 93005; G8987-GP; G8988-GP; G8989-GP; J2060; J7030